=== PATIENT | male | born 1975 ===

== ENCOUNTER 2017-09-05 08:12 | Emergency (ER) | payer MEDICAID ==
[2017-09-05 08:24] VITALS: BP 100/63
--- NOTE | 2017-09-05 08:24 | EDPHY ---
H & P Time Seen by Provider: 09/05/17 08:19 HPI/ROS: CHIEF COMPLAINT: Left knee pain HISTORY OF PRESENT ILLNESS: 42-year-old male status post left BKA presents with left knee pain. He was in his wheelchair and bumped his knee on an object yesterday. He complains moderate knee pain, without alleviating or aggravating factors. No other injuries. ROS: No numbness, weakness, bleeding, syncopal episode, other injury. - Physical Exam Exam: Alert and oriented, pleasant Extremities: Left BKA, stump has 2 open wounds without evidence of infection, Left knee-normal inspection, no tenderness, no joint effusion, range of motion causes pain Skin: as above, no erythema Neuro: Motor and sensory intact Vascular: Capillary refill brisk distally Constitutional: Initial Vital Signs Temperature (C) 36.3 C 09/05/17 08:21 Heart Rate 95 09/05/17 08:21 Respiratory Rate 16 09/05/17 08:21 Blood Pressure 100/63 09/05/17 08:21 O2 Sat (%) 96 09/05/17 08:21 O2 Delivery Mode Room Air Allergies/Adverse Reactions: phenytoin [From Dilantin] Allergy (Verified 09/05/17 08:25) Medical Decision Making - Diagnostics Imaging Results: XRay: no fx Imaging: I viewed and interpreted images myself Differential Diagnosis: This patient presents with left knee pain after a minor injury. X-ray is unremarkable. Declines ibuprofen/Tylenol. Able to transfer to his wheelchair without problem. Follow-up with [facility]. Departure - Departure Disposition: Home, Routine, Self-Care Clinical Impression: Left knee pain Qualifiers: Chronicity: acute Qualified Code(s): M25.562 - Pain in left knee Condition: Good Instructions: Knee Pain (ED) Additional Instructions: Take Tylenol or ibuprofen as needed for pain. [facility] has walk-in appointments for the homeless at the following days/locations. No appointment is needed. Sunday 8-10 am @ [facility] 11 AM-1 PM @ [facility] Sunday 8-10:30 AM @ [facility] Sunday 8-10 AM @ [facility] 2-4 PM @ [facility] Sunday 8-10 AM @ [facility] Referrals: [facility],. [Clinic] - As per Instructions
[2017-09-05] MEDS ORDERED: IBUPROFEN 800 MG TAB PO ONE (09:00)
== END 2017-09-05 09:05 | disposition home or self-care (01) ==
DX: S89.92XA Unspecified injury of left lower leg, initial encounter (principal); W22.8XXA Striking against or struck by other objects, initial encounter